=== PATIENT | male | born 1980 | race Caucasian/White ===

== ENCOUNTER 2019-02-05 11:48 | Emergency (ER) | payer MEDICAID, SELFPAY ==
[2019-02-05 11:51] VITALS: BP 169/107; PULSE 102; RESP 16; TEMP 36.6; O2SAT 97
--- NOTE | 2019-02-05 11:53 | W.ED.GENAD ---
Discharge Plan Discharge Details Chief Complaint: Anxiety Primary Care Provider: None,None ED Provider: Maci Clancy Home Meds and New Rx's Prescriptions: No Action ibuprofen 800 MG tablet 800 mg PO TID Qty: 30 RF: 0 Medical Decision Making Henry Devries is a 38-year-old man with history of chronic anxiety presenting to the emergency department to see care for his chronic and unchanged anxiety symptoms. On exam patient is very well and nontoxic appearing. Is a grossly nonfocal neuro exam, his thought process is lucid and his clear speech is clear. He is clinically sober. He does have decision-making capacity. Doubt metabolic/lyte derangement is contributing to symptoms given chronicity, however plan for labs given no prior screening. Exam/history is not consistent with acute emergent threat to self or to others, acute emergent nonpsychiatric intracranial process, psychosis, other acute emergent life-threatening process. Plan for mental health evaluation to establish outpatient follow-up, and also outpatient follow-up with PCP, plan for d/c to home after labs and outpt f/u plan with mental health. Patient placed on care management list for PCP. Mental health notified of patient for evaluation. Patient requesting that he wait in the waiting room, as he feels more anxious in the enclosed space of the exam room. He is with his . Plan for patient to wait in results waiting area for mental health evaluation, lab draw, further discussion. Patient apparently eloped from the waiting room with his . Attempt was made to contact the patient, however he could not be reached with the phone number provided. Patient was on list for care management follow-up for elopement in addition to PCP establishment. Medical Records Medical records reviewed: Yes I reviewed the patient's medical records. HPI General Mode of arrival: ambulatory. Date/Time Provider Initiated Documentation: 02/05/19 11:52. Limitations to Documentation: no limitations. Information obtained by: patient, RN notes reviewed and old records reviewed. HPI Narrative: Henry Devries is a 38-year-old man with h/o anxiety presenting to the emergency department for chronic anxiety. Patient is accompanied by his . He reports that 6 years ago his brother , and since that time he has had daily anxiety. Patient reports that his anxiety does wax and wane. He states that over the past felt a few days he has had worsening of symptoms, though not any worse than they have been multiple times in the past. and drank 2 beers yesterday and 2 beers today to help with his anxiety. He does not have a history of heavy alcohol use and he reports that he does not typically ever drink alcohol. Patient reports that he became upset that he was using alcohol to handle his anxiety symptoms and thus came to the emergency department. Patient reports that he has no primary care doctor, and has never sought care in any form for his anxiety in the past. He takes no medications. He denies any drug use. Denies any ingestions today other than alcohol as above. He denies suicidality, homicidality, or any thoughts of harming himself. He reports that his is very supportive of him, and he takes very comfort and caring for his children. He also works and enjoys his job. He states that his anxiety is very troubling for him, but it does not usually interfere with his daily activities. Patient reports that his symptoms have been essentially unchanged over the past 6 years, neither improving or worsening. He denies any physical symptoms. No recent illnesses, no recent travel. Has been eating and drinking as usual. Related Data Home Medications Medication Instructions Recorded Confirmed ibuprofen 800 mg PO TID #30 tab 02/06/13 02/05/19 Previous Rx's Medication Instructions Recorded ibuprofen 800 mg PO TID #30 tab 02/06/13 Allergies Allergy/AdvReac Type Severity Reaction Status Date / Time No Known Allergies Allergy Unverified 02/05/19 11:55 Review of Systems Review of Systems Constitutional: denies fevers Eyes: denies eye pain ENT: denies facial pain, dental pain, sore throat Cardiovascular: denies chest pain Respiratory: denies SOB, cough GI: denies abdominal pain, vomiting, diarrhea : denies flank pain MSK: denies back pain, neck pain, arthralgias, myalgias Skin: denies rash Neuro: denies headaches, numbness, weakness Psych: Denies suicidality, homicidality, hallucinations [facility] Social History Smoking/Tobacco Use Status: Current every day Tobacco Type: cigarettes Alcohol Intake: current Alcohol Intake frequency: 0-2 drinks per day Alcohol type: beer Drug use: Never Substance use type: does not use Do you feel safe at home: Yes Do you feel safe in your relationship?: Yes Exam Narrative Exam Narrative: Constitutional: well and [id number], pleasant, conversing normally HENT: head atraumatic/normocephalic/normal inspection, mucous membranes moist Eyes: conjunctiva normal, sclera normal, pupils 3mm b/l Neck: no stridor, normal ROM, trachea midline Resp: normal work of breathing Cardio: normal rate, normal rhythm Skin: warm, dry, normal color, no rash Neuro: alert, not altered, grossly non-focal, normal tone Psych: normal mood, normal affect, normal behavior. Normal speech, clear thought process. No suicidality, no hallucinations
[2019-02-05 11:57] VITALS: RESP 16
--- NOTE | 2019-02-05 12:39 | ED.GENADUL_ITS ---
Discharge Plan Discharge Details Chief Complaint: Anxiety Primary Care Provider: None,None ED Provider: Maci Clancy Home Meds and New Rx's Prescriptions: No Action ibuprofen 800 MG tablet 800 mg PO TID Qty: 30 RF: 0 Medical Decision Making Henry Devries is a 38-year-old man with history of chronic anxiety presenting to the emergency department to see care for his chronic and unchanged anxiety symptoms. On exam patient is very well and nontoxic appearing. Is a grossly nonfocal neuro exam, his thought process is lucid and his clear speech is clear. He is clinically sober. He does have decision-making capacity. Doubt m etabolic/lyte derangement is contributing to symptoms given chronicity, however plan for labs given no prior screening. Exam/history is not consistent with acute emergent threat to self or to others, acute emergent nonpsychiatric intracranial process, psychosis, other acute emergent life-threatening process. Plan for mental health evaluation to establish outpatient follow-up, and also outpatient follow-up with PCP, plan for d/c to home after labs and outpt f/u plan with mental health. Patient placed on care management list for PCP. Mental health notified of patient for evaluation. Patient requesting that he wait in the waiting room, as he feels more anxious in the enclosed space of the exam room. He is with his . Plan for patient to wait in results waiting area for mental health evaluation, lab draw, further discussion. Patient apparently eloped from the waiting room with his . Attempt was made to contact the patient, however he could not be reached with the phone number provided. Patient was on list for care management follow-up for elopement in addition to PCP establishment. Medical Records Medical records reviewed: Yes I reviewed the patient's medical records. HPI General Mode of arrival: ambulatory . Date/Time Provider Initiated Documentation: 02/05/19 11:52 . Limitations to Documentation: no limitations . Information obtained by: patient, RN notes reviewed and old records reviewed . HPI Narrative: Henry Devries is a 38-year-old man with h/o anxiety presenting to the emergency department for chronic anxiety. Patient is accompanied by his . He reports that 6 years ago his brother , and since that time he has had daily anxiety. Patient reports that his anxiety does wax and wane. He states that over the past felt a few days he has had worsening of symptoms, though not any worse than they have been multiple times in the past. and drank 2 beers yesterday and 2 beers today to help with his anxiety. He does not have a history of heavy alcohol use and he reports that he does not typically ever drink alcohol. Patient reports that he became upset that he was using alcohol to handle his anxiety symptoms and thus came to the emergency department. Patient reports that he has no primary care doctor, and has never sought care in any form for his anxiety in the past. He takes no medications. He denies any drug use. Denies any ingestions today other than alcohol as above. He denies suicidality, homicidality, or any thoughts of harming himself. He reports that his is very supportive of him, and he takes very comfort and caring for his children. He also works and enjoys his job. He states that his anxiety is very troubling for him, but it does not usually interfere with his daily activities. Patient reports that his symptoms have been essentially unchanged over the past 6 years, neither improving or worsening. He denies any physical symptoms. No recent illnesses, no recent travel. Has been eating and drinking as usual. Related Data Home Medications Medication Instructions Recorded Confirmed ibuprofen 800 mg PO TID #30 tab 02/06/13 02/05/19 Previous Rx's Medication Instructions Recorded ibuprofen 800 mg PO TID #30 tab 02/06/13 Allergies Allergy/AdvReac Type Severity Reaction Status Date / Time No Known Allergies Allergy Unverified 02/05/19 11:55 Review of Systems Review of Systems Constitutional: denies fevers Eyes: denies eye pain ENT: denies facial pain, dental pain, sore throat Cardiovascular: denies chest pain Respiratory: denies SOB, cough GI: denies abdominal pain, vomiting, diarrhea : denies flank pain MSK: denies back pain, neck pain, arthralgias, myalgias Skin: denies rash Neuro: denies headaches, numbness, weakness Psych: Denies suicidality, homicidality, hallucinations [facility] Social History Smoking/Tobacco Use Status: Current every day Tobacco Type: cigarettes Alcohol Intake: current Alcohol Intake frequency: 0-2 drinks per day Alcohol type: beer Drug use: Never Substance use type: does not use Do you feel safe at home: Yes Do you feel safe in your relationship?: Yes Exam Narrative Exam Narrative: Constitutional: well and [id number], pleasant, conversing normally HENT: head atraumatic/normocephalic/normal inspection, mucous membranes moist Eyes: conjunctiva normal, sclera normal, pupils 3mm b/l Neck: no stridor, normal ROM, trachea midline Resp: normal work of breathing Cardio: normal rate, normal rhythm Skin: warm, dry, normal color, no rash Neuro: alert, not altered, grossly non-focal, normal tone Psych: normal mood, normal affect, normal behavior. Normal speech, clear thought process. No suicidality, no hallucinations
== END 2019-02-05 12:30 ==
LOC: ER 12:37
PROVIDERS: Emergency Provider Student in an Organized Health Care Education/Training Program
DX: F41.9 Anxiety disorder, unspecified (principal)
CPT/HCPCS: 99283

== ENCOUNTER 2019-02-06 17:23 | Emergency (ER) | payer MEDICAID, SELFPAY ==
[2019-02-06 17:33] VITALS: BP 158/107; PULSE 110; RESP 16; TEMP 36.6; O2SAT 98
[2019-02-06 17:53] VITALS: RESP 20
--- NOTE | 2019-02-06 18:02 | W.ED.GENAD ---
Discharge Plan Disposition Patient Disposition: HOME Condition: Fair Discharge Details Chief Complaint: Anxiety Clinical Impression: Anxiety, Alcohol abuse Primary Care Provider: None,None ED Provider: Swetha Keenan Home Meds and New Rx's Prescriptions: Continued ibuprofen 800 MG tablet 800 mg PO TID Qty: 30 RF: 0 Discharge Instructions Instructions: Abuse of Alcohol (ED), Anxiety (ED) Additional Instructions: Cut back on alcohol intake. Please contact detox facilities as soon as possible to discuss admission. you have been placed on a list for primary care physician. They will contact you to discuss follow up appointment. If you develop thoughts of self harm or other new/worsening symptoms please seek care urgently once again. Discharge Data Discharge Date/Time-TO BE ENTERED AT DEPARTURE: 02/06/19 19:00 Medical Decision Making This is a 38-year-old male presents today with primary concern of anxiety and alcohol abuse. He reports over the past several weeks is been drinking daily to self medicate my anxiety. He denies any thoughts of self-harm, hallucinations, thoughts of harming others. He reports that he has had anxiety for several years, particularly since his brother's . Reports that this has been increasing but denies any acute change in his social situation. He seems very attached to his . His is present with him and is nothing but supportive. He feels safe at home. Patient was seen by Matt with [facility] services and was able to give him all of the contact information for local rehabilitation services. Patient reports that this was what he was seeking. He is aware that at this time, given his have an alcohol use, we are unable to prescribe anxiety medications for him. He reports that he will contact them today to try and get in as soon as possible for further facilitation. We discussed new/worsening symptoms when to seek care urgently once again. He will try to begin weaning himself off of alcohol. All his questions and concerns were addressed and he is in agreement this plan. He has upcoming appointment with mental health and will keep this appointment. HPI General Mode of arrival: ambulatory. Date/Time Provider Initiated Documentation: 02/06/19 17:28. Limitations to Documentation: no limitations. Information obtained by: patient, family (accompanied by ) and RN notes reviewed. HPI Narrative: Patient is a 38-year-old male presenting today with chief complaint of anxiety. He reports that he has been having increased anxiety, was seen here recently for this, and has been self-medicating with alcohol. Seems very concerned about this particularly with his interpersonal relationship. Patient is has children and states that he is concerned that this may begin to affect his relationship with his . Prior to coming here, the patient drank 6 beers. He is wanting to get into a detox facility but was unclear as to how to do this. Patient is seen by [facility] was actually seen there this morning at which time he did discuss his anxiety. He has not yet contacted any detox facilities, is here requesting more information. He denies any thoughts of self-harm, hallucinations or thoughts of harming others. Related Data Home Medications Medication Instructions Recorded Confirmed ibuprofen 800 mg PO TID #30 tab 02/06/13 02/05/19 Previous Rx's Medication Instructions Recorded ibuprofen 800 mg PO TID #30 tab 02/06/13 Allergies Allergy/AdvReac Type Severity Reaction Status Date / Time No Known Allergies Allergy Unverified 02/06/19 17:38 General Stated Complaint: Anxiety YUVAL: 3 Review of Systems Constitutional Reports as per HPI, Denies chills, Denies fatigue, Denies fever(s), Denies headache(s) and Denies weakness Eyes Denies change in vision ENT Denies headache(s) Cardiovascular Reports as per HPI, Denies chest pain, Denies lightheadedness, Denies dyspnea and Denies dyspnea on exertion Respiratory Reports as per HPI, Denies cough, Denies dyspnea and Denies dyspnea on exertion Gastrointestinal Reports as per HPI, Denies abdominal pain, Denies change in bowel habits, Denies nausea and Denies vomiting Genitourinary Denies system reviewed and no additional complaints, except as docu (denies any change in urinary habits) Musculoskeletal Denies abnormal gait Integumentary/Breasts Reports as per HPI and Denies rash Neurologic Denies abnormal movements, Denies abnormal speech, Denies abnormal gait, Reports behavioral changes, Denies headache(s), Denies paresthesias and Denies weakness Psychiatric Reports as per HPI, Reports abnormal sleep pattern, Reports anxiety, Reports behavioral changes, Reports depression, Denies auditory hallucinations, Reports mood swings, Reports panic attacks, Denies visual hallucinations, Denies hallucinations, Denies tactile hallucinations, Denies homicidal ideation and Denies suicidal ideation Endocrine Denies fatigue [facility] Social History Smoking/Tobacco Use Status: Current every day Tobacco Type: cigarettes Alcohol Intake: current Alcohol Intake frequency: 0-2 drinks per day Alcohol type: beer Drug use: Never Substance use type: does not use Do you feel safe at home: Yes Do you feel safe in your relationship?: Yes Exam Const General: cooperative, healthy appearing, comfortable, well developed, well groomed, anxious and disheveled Nutritional Appearance: average body habitus and well nourished Orientation: alert, awake and oriented x3 Eyes General: appearance normal, both eyes and all related structures Resp Effort & Inspection: normal respiratory effort, able to speak in complete sentences and no respiratory distress Auscultation: clear to auscultation bilaterally, no rales, no rhonchi and no wheezes Cardio Rate: regular rate Rhythm: regular rhythm Heart Sounds: S1 normal and S2 normal Skin General skin exam: no rashes or lesions noted Trauma: no lacerations or abrasions Neuro General: alert and awake Cognition: normal cognition Speech: speech normal Gait: normal gait Psych Appearance: grossly normal Mental Status: mental status grossly normal Speech and Movement: agitated Mood: anxious mood and labile mood Affect: labile affect, sad and anxious affect Attitude: cooperative Thought Process: normal Course Vital Signs Temperature 36.6 C 02/06/19 17:33 Pulse 110 H 02/06/19 17:33 Respiratory Rate 16 02/06/19 17:33 Blood Pressure 158/107 H 02/06/19 17:33 Pulse Oximetry 98 02/06/19 17:33 Temperature 36.6 C 02/06/19 17:33 Temperature Source Skin 02/06/19 17:33 Pulse 110 H 02/06/19 17:33 Respiratory Rate 20 02/06/19 17:53 Respiratory Effort Short of Breath 02/06/19 17:53 Respiratory Depth Normal 02/06/19 17:53 Respiratory Pattern Normal 02/06/19 17:53 Blood Pressure 158/107 H 02/06/19 17:33 Blood Pressure Position Sitting 02/06/19 17:33 Pulse Oximetry 98 02/06/19 17:33 Oxygen Delivery Method Room Air 02/06/19 17:33 Oxygen Flow Rate 0 02/06/19 17:33
[2019-02-06 18:57] VITALS: BP 116/64; PULSE 110; RESP 20; TEMP 36.6; O2SAT 98
--- NOTE | 2019-02-10 10:35 | ED.GENADUL_ITS ---
Discharge Plan Disposition Patient Disposition: HOME Condition: Fair Discharge Details Chief Complaint: Anxiety Clinical Impression: Anxiety, Alcohol abuse Primary Care Provider: None,None ED Provider: Swetha Keenan Home Meds and New Rx's Prescriptions: Continued ibuprofen 800 MG tablet 800 mg PO TID Qty: 30 RF: 0 Discharge Instructions Instructions: Abuse of Alcohol (ED), Anxiety (ED) Additional Instructions: Cut back on alcohol intake. Please contact detox facilities as soon as possible to discuss admission. you have been placed on a list for primary care physician. They will contact you to discuss follow up appointment. If you develop thoughts of self harm or other new/worsening symptoms please seek care urgently once again. Discharge Data Discharge Date/Time-TO BE ENTERED AT DEPARTURE: 02/06/19 19:00 Medical Decision Making This is a 38-year-old male presents today with primary concern of anxiety and alcohol abuse. He reports over the past several weeks is been drinking daily to self medicate my anxiety. He denies any thoughts of self-harm, hallucinations, thoughts of harming others. He reports that he has had anxiety for several years, particularly since his brother's . Reports that this has been increasing but denies any acute change in his social situation. He seems very attached to his . His is present with him and is nothing but supportive. He feels safe at home. Patient was seen by Matt with [facility] services and was able to give him all of the contact information for local rehabilitation services. Patient reports that this was what he was seeking. He is aware that at this time, given his have an alcohol use, we are unable to prescribe anxiety medications for him. He reports that he will contact them today to try and get in as soon as possible for further facilitation. We discussed new/worsening symptoms when to seek care urgently once again. He will try to begin weaning himself off of alcohol. All his questions and concerns were addressed and he is in agreement this plan. He has upcoming appointment with mental health and will keep this appointment. HPI General Mode of arrival: ambulatory . Date/Time Provider Initiated Documentation: 02/06/19 17:28 . Limitations to Documentation: no limitations . Information obtained by: patient, family (accompanied by ) and RN notes reviewed . HPI Narrative: Patient is a 38-year-old male presenting today with chief complaint of anxiety. He reports that he has been having increased anxiety, was seen here recently for this, and has been self-medicating with alcohol. Seems very concerned about this particularly with his interpersonal relationship. Patient is has children and states that he is concerned that this may begin to affect his relationship with his . Prior to coming here, the patient drank 6 beers. He is wanting to get into a detox facility but was unclear as to how to do this. [facility] this morning at which time he did discuss his anxiety. He has not yet contacted any detox facilities, is here requesting more information. He denies any thoughts of self-harm, hallucinations or thoughts of harming others. Related Data Home Medications Medication Instructions Recorded Confirmed ibuprofen 800 mg PO TID #30 tab 02/06/13 02/05/19 Previous Rx's Medication Instructions Recorded ibuprofen 800 mg PO TID #30 tab 02/06/13 Allergies Allergy/AdvReac Type Severity Reaction Status Date / Time No Known Allergies Allergy Unverified 02/06/19 17:38 General Stated Complaint: Anxiety YUVAL: 3 Review of Systems Constitutional Reports as per HPI, Denies chills, Denies fatigue, Denies fever(s), Denies headache(s) and Denies weakness Eyes Denies change in vision ENT Denies headache(s) Cardiovascular Reports as per HPI, Denies chest pain, Denies lightheadedness, Denies dyspnea and Denies dyspnea on exertion Respiratory Reports as per HPI, Denies cough, Denies dyspnea and Denies dyspnea on exertion Gastrointestinal Reports as per HPI, Denies abdominal pain, Denies change in bowel habits, Denies nausea and Denies vomiting Genitourinary Denies system reviewed and no additional complaints, except as docu (denies any change in urinary habits) Musculoskeletal Denies abnormal gait Integumentary/Breasts Reports as per HPI and Denies rash Neurologic Denies abnormal movements, Denies abnormal speech, Denies abnormal gait, Reports behavioral changes, Denies headache(s), Denies paresthesias and Denies weakness Psychiatric Reports as per HPI, Reports abnormal sleep pattern, Reports anxiety, Reports behavioral changes, Reports depression, Denies auditory hallucinations, Reports mood swings, Reports panic attacks, Denies visual hallucinations, Denies hallucinations, Denies tactile hallucinations, Denies homicidal ideation and Denies suicidal ideation Endocrine Denies fatigue [facility] Social History Smoking/Tobacco Use Status: Current every day Tobacco Type: cigarettes Alcohol Intake: current Alcohol Intake frequency: 0-2 drinks per day Alcohol type: beer Drug use: Never Substance use type: does not use Do you feel safe at home: Yes Do you feel safe in your relationship?: Yes Exam Const General: cooperative, healthy appearing, comfortable, well developed, well groomed, anxious and disheveled Nutritional Appearance: average body habitus and well nourished Orientation: alert, awake and oriented x3 Eyes General: appearance normal, both eyes and all related structures Resp Effort & Inspection: normal respiratory effort, able to speak in complete sentences and no respiratory distress Auscultation: clear to auscultation bilaterally, no rales, no rhonchi and no wheezes Cardio Rate: regular rate Rhythm: regular rhythm Heart Sounds: S1 normal and S2 normal Skin General skin exam: no rashes or lesions noted Trauma: no lacerations or abrasions Neuro General: alert and awake Cognition: normal cognition Speech: speech normal Gait: normal gait Psych Appearance: grossly normal Mental Status: mental status grossly normal Speech and Movement: agitated Mood: anxious mood and labile mood Affect: labile affect, sad and anxious affect Attitude: cooperative Thought Process: normal Course Vital Signs Temperature 36.6 C 02/06/19 17:33 Pulse 110 H 02/06/19 17:33 Respiratory Rate 16 02/06/19 17:33 Blood Pressure 158/107 H 02/06/19 17:33 Pulse Oximetry 98 02/06/19 17:33 Temperature 36.6 C 02/06/19 17:33 Temperature Source Skin 02/06/19 17:33 Pulse 110 H 02/06/19 17:33 Respiratory Rate 20 02/06/19 17:53 Respiratory Effort Short of Breath 02/06/19 17:53 Respiratory Depth Normal 02/06/19 17:53 Respiratory Pattern Normal 02/06/19 17:53 Blood Pressure 158/107 H 02/06/19 17:33 Blood Pressure Position Sitting 02/06/19 17:33 Pulse Oximetry 98 02/06/19 17:33 Oxygen Delivery Method Room Air 02/06/19 17:33 Oxygen Flow Rate 0 02/06/19 17:33
== END 2019-02-06 19:00 | disposition home or self-care (01) ==
PROVIDERS: Emergency Provider Physician Assistant
DX: F41.9 Anxiety disorder, unspecified (principal); F10.10 Alcohol abuse, uncomplicated
CPT/HCPCS: 99283

== ENCOUNTER 2019-08-06 08:09 | Emergency (ER) | payer MEDICAID, SELFPAY ==
[2019-08-06 08:14] VITALS: BP 136/87; PULSE 120; RESP 18; TEMP 36.3; O2SAT 99
--- NOTE | 2019-08-06 08:21 | ED.GENADUL_ITS ---
Discharge Plan Disposition Patient Disposition: HOME Condition: Stable Discharge Details Chief Complaint: RespSymp Clinical Impression: Acute upper respiratory infection Primary Care Provider: None,None ED Provider: Dillon Reagan Home Meds and New Rx's Prescriptions: New doxycycline hyclate 100 mg tablet 100 mg PO BID Qty: 14 RF: 0 prednisone 20 mg tablet 60 mg PO DAILY 5 Days Qty: 15 RF: 0 Cortisporin-TC 3.3-3-10-0.5 mg/mL drops,suspension 4 drp OT TID 5 Days Qty: 10 RF: 0 Continued ibuprofen 800 MG tablet 800 mg PO TID Qty: 30 RF: 0 Discharge Instructions Instructions: Upper Respiratory Infection (ED) Additional Instructions: if not better within a week follow up with your primary care provider if you feel more ill, have worsening shortness of breath or severe pain return to the emergency department you can take 1000mg tylenol and 600mg ibuprofen every 6 hours for pain as needed Medical Decision Making 39 yo male who denies chronic medical problems, is a smoker, comes in with chief complaint of cough for several days. no fevers, denies recent travel or chest pain. He does have wheezing bilaterally in the lower lobes with some rhonchi in the right lower. He appears well systemically with HR of 100 on my exam. Doubt sepsis at this time. Given his findings will tx with steroids and neb and reassess. Will also cover for bronchitis vs early cap with doxy. He has no chest pain and his symptoms are more infectious with runny nose as well so doubt entities such as acs, pe, dissection at this time. pt remains stable, has intermittent dry cough and lung sounds are significantly improved. Will d/c with an inhaler and on steroids and doxy. He has noted some ear pain and does have some mild inflammation of the right ear canal, both tm's and external mastoid exams are normal. Will d/c on ear drops. Advised f/u with pcp if not improving and return precautions given Differential Diagnosis Differential Diagnosis: copd, asthma, bronchitis, pna HPI General Mode of arrival: ambulatory . Date/Time Provider Initiated Documentation: 08/06/19 08:11 . Limitations to Documentation: no limitations . Information obtained by: patient . History of Present Illness 39 year old M presents to the emergency department with the chief complaint of cough, described as moderate, and it has been constant. No relieving factors improve symptom(s), No exacerbating factors reported . Patient did receive the following treatments prior to arrival, none Related Data Home Medications Medication Instructions Recorded Confirmed ibuprofen 800 mg PO TID #30 tab 02/06/13 08/06/19 doxycycline hyclate 100 mg PO BID #14 tab 08/06/19 [id number]-[id number]-thonzonium 4 drp OT TID 5 Days #10 ml 08/06/19 [Cortisporin-TC] prednisone 60 mg PO DAILY 5 Days #15 tab 08/06/19 Previous Rx's Medication Instructions Recorded ibuprofen 800 mg PO TID #30 tab 02/06/13 doxycycline hyclate 100 mg PO BID #14 tab 08/06/19 [id number]-[id number]-EE-thonzonium 4 drp OT TID 5 Days #10 ml 08/06/19 [Cortisporin-TC] prednisone 60 mg PO DAILY 5 Days #15 tab 08/06/19 Allergies Allergy/AdvReac Type Severity Reaction Status Date / Time No Known Allergies Allergy Unverified 08/06/19 08:18 General Stated Complaint: RespSymp YUVAL: 4 Review of Systems Review of Systems ROS Unobtainable: All systems reviewed & are unremarkable except as noted in HPI and below Constitutional Constitutional: Denies chills and Denies fever(s) Cardiovascular Cardiovascular: Denies chest pain Gastrointestinal Gastrointestinal: Denies abdominal pain, Denies nausea and Denies vomiting PFSH Social History Smoking/Tobacco Use Status: Current every day Tobacco Type: cigarettes Alcohol Intake: current Alcohol Intake frequency: 0-2 drinks per day Alcohol type: beer Drug use: Never Substance use type: does not use Do you feel safe at home: Yes Do you feel safe in your relationship?: Yes Exam Const General: no acute distress Orientation: alert HENMT Head: normal to inspection Ears: external ears normal General nose exam: external nose normal Mouth: moist mucous membranes Eyes General: appearance normal, both eyes and all related structures Neck Neck: normal visual inspection Resp Effort & Inspection: normal respiratory effort and able to speak in complete sentences Cardio Rate: regular rate Skin General skin exam: no rashes or lesions noted Neuro General: alert and oriented x3 Extrem General: normal to inspection Psych Mental Status: mental status grossly normal Course Vital Signs Vital signs: Vital Signs Temperature 36.3 C L 08/06/19 08:14 Pulse 120 H 08/06/19 08:14 Respiratory Rate 18 08/06/19 08:14 Blood Pressure 136/87 08/06/19 08:14 Pulse Oximetry 99 08/06/19 08:14 Temperature 36.3 C L 08/06/19 08:14 Temperature Source Temporal Artery Scan 08/06/19 08:14 Pulse 120 H 08/06/19 08:14 Respiratory Rate 18 08/06/19 08:14 Respiratory Effort Non-Labored 08/06/19 08:17 Blood Pressure 136/87 08/06/19 08:14 Pulse Oximetry 99 08/06/19 08:14 Oxygen Delivery Method Room Air 08/06/19 08:14 Oxygen Flow Rate 0 08/06/19 08:14 Pain Level 0 08/06/19 08:14
[2019-08-06] MEDS: Doxycycline Hyclate 100 MG CAP PO (08:24)
[2019-08-06] MEDS: Albuterol/Ipratropium 3 ML UPD VIAL UPD (08:24)
[2019-08-06] MEDS: predniSONE 20 MG TAB 60 MG PO (08:24)
[2019-08-06] MEDS: Albuterol HFA 8 GM 60 PUFF INH IH (08:52)
[2019-08-06 08:53] VITALS: BP 136/87; PULSE 120; RESP 18; TEMP 36.3; O2SAT 99
[2019-08-06] MEDS: Inhaler, Assist Device 1 EACH MC (08:53)
== END 2019-08-06 08:55 | disposition home or self-care (01) ==
PROVIDERS: Emergency Provider Emergency Medicine
DX: J06.9 Acute upper respiratory infection, unspecified (principal); F17.210 Nicotine dependence, cigarettes, uncomplicated
CPT/HCPCS: 94640; 99283; J7512; J7620

== ENCOUNTER 2023-05-24 11:20 | Emergency (ER) | payer MEDICAID, SELFPAY ==
[2023-05-24 11:29] VITALS: BP 111/82; PULSE 133; RESP 18; TEMP 36.7; O2SAT 97
--- NOTE | 2023-05-24 11:36 | ED.GENADUL_ITS ---
Discharge Plan Disposition Patient Disposition: Home Condition: Stable Discharge Details Clinical Impression: Lumbago without sciatica Primary Care Provider: None,None ED Provider: Smita Reynolds Home Meds and New Rx's Prescriptions: New diazepam [Valium] 2 mg tablet 2 mg PO BID PRN (Reason: muscle spasm) Qty: 7 0RF Rx Instructions: Take one tablet by mouth twice daily as needed for muscle spasm. No Action ibuprofen 800 MG tablet 800 mg PO TID Qty: 30 0RF Discharge Instructions Instructions: Low Back Strain (ED) Additional Instructions: X-ray shows some degenerative changes of your spine. No significant abnormality. I do suspect that you have strained your back. Please take the Valium prescription as instructed. Do not operate heavy machinery or drive while on this medication it will make you sleepy. Alternate ice and heat. Please take Tylenol or Ibuprofen with food every 4-6 hours as needed for pain and swelling. Follow up with primary care provider in 3-5 days. Return to ED sooner if any worsening numbness tingling, loss of bowel or bladder control, loss of muscle strength in your extremities or concerns. Increase oral fluids. You may also try [id number] topical ointment such as Biofreeze or similar. You been placed on a care management list to establish primary care provider they should be calling you to help you get an appointment. Discharge Data Discharge Date/Time-TO BE ENTERED AT DEPARTURE: 05/24/23 14:57 Medical Decision Making 43-year-old male presents to the ER with lower back pain which began 3 days ago after lifting a coffee table and a bed. Pain is worse with forward bending and certain movements of his legs he denies any radiation, denies any saddle anesthesia no loss of bowel or bladder control no numbness in his groin. He does report a sensation of pressure in his testicles with forward bending onto all fours. He denies any testicular swelling. No crepitus, step-off with palpation. He is tachycardic upon arrival. Has not taken any medications for pain this morning. Lumbar x-rays ordered, urinalysis IM Norflex and 60 mg Toradol and lidocaine patch. Differential diagnosis includes but not limited to musculoskeletal strain, muscle spasm, bulging disc, slipped disc, cauda equina however patient has no saddle anesthesia or radiation of pain. X-ray within normal limits see result below. Mild degenerative changes. I do suspect musculoskeletal strain and with muscle spasm. This is also accompanied by anxiety. I will give patient a Valium prescription and home care including alternating ice and heat and follow-up care and strict return instructions. Urinalysis shows trace ketones negative leukocytes negative nitrites 2.0 uro bilinogen. Patient ambulatory upon discharge and throughout stay. Instructed to follow-up with PCP. this text was generated using [employer] dictation system, please disregard any oddities of phrase or misspellings. Imaging Data Radiologic Study: Imaging: X-Ray Radiologist's impression: XR LUMBAR SPINE COMPLETE EXAM:? XR LUMBAR SPINE COMPLETE CLINICAL HISTORY: ? Lower back Pain.? TECHNIQUE:? 2D digital imaging was performed of the lumbar spine.? Five images were obtained.? AP, lateral, right oblique, left oblique and L5-S1 spot views were obtained. COMPARISON:? No exams were available for comparison FINDINGS: There are mild degenerative changes seen in the lumbar spine.? No acute fracture or subluxation is seen.? There is no spondylolysis or spondylolisthesis.? The bones are normally mineralized. IMPRESSION: Mild degenerative changes in the lumbar spine.? Lab Data Lab results reviewed: Yes I reviewed the patient's lab results. Labs: Laboratory Tests Range/Units 05/24/23 11:51 Urine Color (Yellow) Yellow Urine Clarity (Clear) Clear Urine pH (5-8) 8.5 H Ur Specific [place] (1.005-1.025) 1.020 Urine Protein (Negative) mg/dL Negative Urine Ketones (Negative) mg/dL Trace H Urine Blood (Negative) Negative Urine Nitrite (Negative) Negative Urine Bilirubin (Negative) Negative Urine Urobilinogen (Up to 0.2) mg/dL 2.0 H Ur Leukocyte Esterase (Negative) Negative Urine Glucose (Negative) mg/dL Negative HPI General Mode of arrival: ambulatory . Date/Time Provider Initiated Documentation: 05/24/23 11:22 . Limitations to Documentation: no limitations . Information obtained by: patient, RN notes reviewed and old records reviewed . HPI Narrative: 43-year-old male presents to the ER with lower back pain which began 3 days ago after lifting a coffee table and a bed. Pain is worse with forward bending and certain movements of his legs he denies any radiation, denies any saddle anesthesia no loss of bowel or bladder control no numbness in his groin. He does report a sensation of pressure in his testicles with forward bending onto all fours. He denies any testicular swelling. No crepitus, step-off with palpation. He is tachycardic upon arrival. Has not taken any medications for pain this morning. Related Data Home Medications Medication Instructions Recorded Confirmed ibuprofen 800 mg tablet 800 mg PO TID #30 tabs 02/06/13 05/24/23 diazepam 2 mg tablet (Valium) 2 mg PO BID PRN muscle spasm #7 05/24/23 tabs Previous Rx's Medication Instructions Recorded ibuprofen 800 mg tablet 800 mg PO TID #30 tabs 02/06/13 diazepam 2 mg tablet (Valium) 2 mg PO BID PRN muscle spasm #7 05/24/23 tabs Allergies Allergy/AdvReac Type Severity Reaction Status Date / Time No Known Allergies Allergy Unverified 05/24/23 11:37 General Stated Complaint: Nk/Back Pain YUVAL: 4 Review of Systems All systems reviewed & are unremarkable except as noted in HPI and below ENT Ears, Nose, Mouth, and Throat: Denies neck pain Musculoskeletal Musculoskeletal: Reports back pain, Denies loss of height, Denies neck pain, Denies numbness, Denies radiating pain into limb and Reports stiffness Neurologic Neurologic: Reports as per HPI, Denies localized weakness and Denies numbness PFSH All Active Problems (Updated 05/24/23 @ 14:44 by Smita Reynolds NP) Lumbago without sciatica (Acute) Social History Smoking/Tobacco Use Status: Former Tobacco Use Quit Date: 11/17/22 Smoking risk assessment performed?: Yes Alcohol Intake: former Drug use: Never Substance use type: does not use Housing: apartment Do you feel safe at home: Yes Do you feel safe in your relationship?: Yes Exam Resp Effort & Inspection: normal respiratory effort and able to speak in complete sentences Auscultation: clear to auscultation bilaterally Cardio Rate: tachycardic Heart Sounds: S1 normal and S2 normal Back/Spine/Pelvis Back: no CVA tenderness Cervical Spine: normal cervical lordosis and cervical ROM normal Thoracic/Lumbar Spine: bend over test abnormal, thoraco-lumbar ROM limited, thoraco-lumbar spasm and No lumbar spinal tenderness Back/spine/pelvis image: 1. Subjective Pain Neuro General: patient alert, patient awake, patient oriented x3, moves all extremities, normal light touch, pain and propioception and no focal motor deficits Cognition: normal cognition Speech: speech normal Gait: normal gait Motor: muscle tone normal throughout and strength 5/5 throughout Course Vital Signs Vital signs: Vital Signs Temperature 36.7 C 05/24/23 11:29 Pulse 133 H 05/24/23 11:29 Respiratory Rate 18 05/24/23 11:29 Blood Pressure 111/82 05/24/23 11:29 Pulse Oximetry 97 05/24/23 11:29 Temperature 36.7 C 05/24/23 11:29 Temperature Source Oral 05/24/23 11:29 Pulse 133 H 05/24/23 11:29 Respiratory Rate 18 05/24/23 11:29 Respiratory Effort Normal, Non-Labored 05/24/23 11:34 Blood Pressure 111/82 05/24/23 11:29 Blood Pressure Position Standing 05/24/23 11:29 Pulse Oximetry 97 05/24/23 11:29 Oxygen Delivery Method Room Air 05/24/23 11:29 Oxygen Flow Rate 0 05/24/23 11:29 Pain Level 2 05/24/23 11:29
[2023-05-24 11:58] LABS: Bilirubin Negative (Negative); Blood Negative (Negative); Clarity Clear (Clear); Glucose Negative (Negative); Ketones Trace mg/dL (Negative); Leukocyte Esterase Negative (Negative); Nitrite Negative (Negative); pH 8.5 (5-8)
[2023-05-24] MEDS: Orphenadrine 60 MG/2 ML VIAL IM (12:02)
[2023-05-24] MEDS: Ketorolac 60 MG/2 ML VIAL IM (12:02)
[2023-05-24] MEDS: Lidocaine 5% Patch 1 PATCH TP (12:03)
--- NOTE | 2023-05-24 12:30 | DI.RAD_ITS ---
Exam(s) XR LUMBAR SPINE COMPLETE EXAM: XR LUMBAR SPINE COMPLETE CLINICAL HISTORY: Lower back Pain. TECHNIQUE: 2D digital imaging was performed of the lumbar spine. Five images were obtained. AP, la teral, right oblique, left oblique and L5-S1 spot views were obtained. COMPARISON: No exams were available for comparison FINDINGS: There are mild degenerative changes seen in the lumbar spine. No acute fracture or subluxation is se en. There is no spondylolysis or spondylolisthesis. The bones are normally mineralized. IMPRESSION: Mild degenerative changes in the lumbar spine. DATA REPOSITORY: RADIATION DOSE DELIVERED:
[2023-05-24] MEDS: diazePAM 5 MG TAB PO (13:41)
[2023-05-24 14:19] VITALS: BP 110/73; PULSE 75; TEMP 36.7; O2SAT 96
--- NOTE | 2023-05-24 14:45 | NUR.NOTE ---
Nursing Note: pcp followup refferall
== END 2023-05-24 14:57 | disposition home or self-care (01) ==
PROVIDERS: Emergency Provider Registered Nurse Emergency
DX: M47.816 Spondylosis without myelopathy or radiculopathy, lumbar region (principal); Z87.891 Personal history of nicotine dependence
CPT/HCPCS: 96372; 99283; J2360; 72110; 81003; J1885

== ENCOUNTER 2025-03-31 12:30 | Emergency (ER) | payer MEDICAID, SELFPAY ==
[2025-03-31] VITALS (12 sets, daily range): BP systolic 118–152; BP diastolic 73–97; PULSE 59–84; RESP 12–20; TEMP 36.4; O2SAT 97–99
--- NOTE | 2025-03-31 12:30 | RT.EKG_ITS ---
APPROVED REPORT Exam: Resting ECG Reason for Exam: Questioning Stroke Patient Location: E HR:79 bpm ECG Measurements Heart Rate 79 AXIS CA 154 P 43 QRSd 93 QRS 35 QT 368 T 13 QTc 423 Conclusion Sinus rhythm...normal P axis, V-rate 60- 99 No Occlusion [facility]
--- NOTE | 2025-03-31 12:33 | W.ED.GENAD ---
Discharge Plan Disposition Patient Disposition: Home Discharge Details Clinical Impression: Tingling of left upper extremity Primary Care Provider: Moise Givens ED Provider: Porter Bautista Home Meds and New Rx's Prescriptions: No Action No Known Home Meds Discharge Instructions Additional Instructions: You were seen in the emergency department for your arm tingling. Your EKG showed no sign of heart attack. Your blood work shows that you have normal kidney function and are not anemic. Your blood work is also reassuring against diabetes. Please return to the emergency department if you develop vomiting chest pain weakness or difficulty speaking. Your primary care is Dr. Kraus at [facility]. Please call to arrange for follow-up next week. Discharge Data Discharge Date/Time-TO BE ENTERED AT DEPARTURE: 03/31/25 14:46 HPI General Date/Time Provider Initiated Documentation: 03/31/25 12:32. HPI Narrative: MDM This is an overall very well-appearing normothermic and not tachycardic 44-year-old male with transient arm tingling and elevated BMI and family history positive for premature coronary artery disease for which patient will undergo troponin testing. No chest discomfort to suggest aortic dissection. No pain out of proportion to suggest suspect active soft tissue infection. No cough to suggest pneumonia. Not a dialysis patient so my suspicion is low for tamponade. Equal breath sounds and no trauma so doubt pneumothorax. No black nor bloody stoos to suggest GIB. I considered CVA given left-sided transient arm tingling. Patient is neurologically intact with no focal deficits. I do not feel that he would be a candidate for lytics. No tonic-clonic activity to suggest seizure so no indication for EEG. No fevers no nuchal rigidity so doubt meningitis. Patient lacks risk factors for TIA. As result given that he transient symptoms I do not feel that he requires an angiogram of his head nor neck. Denies recent chiropractic manipulation of neck pain so I am not suspicious for cervical arterial dissection. I considered intracranial hemorrhage however patient is neurologically intact so I do not feel he requires noncontrast CT of his head. We will obtain basic labs and and 2 sets of troponins and reassess. I considered posterior circulation CVA however patient had no nystagmus discharge CVA do not feel he requires an MRI. HEART SCORE Chest pain Diagnostic Protocol: [-History/Physical/Gestalt: Slightly Suspicious (0)] [-EKG: Normal and/or unchanged from prior EKG (0)] [-AGE: less than 45 (0)] [- RISK FACTORS: 1 - 2 risk factors (+1)] [-TROPONIN: <= normal limit (0)] - TOTAL SCORE: 1 - Risk Factors: DM, current or recent smoker, HTN, HLD, family hx of CAD, obesity - INTERPRETATION: With a total score of 3 or less, risk of major cardiac event within six weeks 1.7%, likely lower with two negative troponins. 2:30 PM Checks x-ray read by radiology with mildly increased markings in the inferior lingular segment of the left lung. Patient is not coughing, hypoxic nor tachycardic so I am not suspicious for pneumonia. Patient reported that he had had URI symptoms several weeks ago. It is certainly possible that these x-ray findings represent a scar from prior infection, either recently or remotely. We discussed that if he develops shortness of breath or chest pain that he should return to the emergency department. I asked health mmd unit teacher Lynda to have the patient established with primary care provider. Patient and I discussed that if he develops any weakness in his hand any recurrent tingling in his left arm or if he passed out that he should return to the emergency department. Otherwise we will discharge an empiric trial of expectant outpatient management. [Diagnostic interpretations performed by me: Per my independent interpretation chest x-ray shows: No acute cardiopulmonary process Per my independent interpretation EKG shows: Narrow complex normal sinus rhythm at a rate of 79. Normal axis. Intervals within normal limits. T wave version in lead III. No acute injury pattern. HPI The patient presents to the emergency room for evaluation of left arm tingling and numbness. While at home, he experienced an episode of left arm tingling and numbness, a symptom he has not previously encountered. Concurrently, he reported an unusual sensation in the posterior and superior aspects of his head. He also experienced mild dizziness during the onset of these symptoms, which intensified upon standing to prepare for his visit to the emergency room. His symptoms have since improved, with no current numbness or immobility in the affected arm. He reports no febrile episodes, emesis, thoracic or abdominal discomfort. He continues to experience mild dizziness. He has a history of panic attacks over the past few years and is uncertain if the current episode was exacerbated by a panic attack. Patient's brother had an FL in his 30s. Exam General: Well-appearing in no acute distress speaking in complete sentences. Head: Normocephalic, atraumatic. Eye:[Pupils equal, round reactive to light.] Extraocular eye movements intact. No conjunctival injection. No scleral icterus. Ear, nose, mouth, throat: Grossly normal inspection. Normal voice, handling secretions normally. Neck: Trachea midline. Cardiovascular: Well-perfused distal extremities. Respiratory: Nonlabored respiration. Gastrointestinal: Nondistended abdomen. Musculoskeletal: No edema. Moving all 4 extremities spontaneously. Skin: Normal for age and race, grossly normal temperature and turgor. No acute rash. Neurologic: Alert and appropriate, no apparent acute deficits. Cranial nerves II through XII intact grossly. No dysmetria. No dysdiadochokinesia. No pronator drift. 5 out of 5 bilateral upper and lower extremity strength. GCS 15. Psychiatric: Mood and manner are appropriate. Grooming and personal hygiene are appropriate. Related Data Home Medications ?Medication ?Instructions ?Recorded ?Confirmed Unknown [No Known Home Meds] 03/31/25 03/31/25 Allergies Allergy/AdvReac Type Severity Reaction Status Date / Time No Known Allergies Allergy Unverified 03/31/25 12:37 General YUVAL: 4 PFSH All Active Problems (Updated 03/31/25 @ 14:38 by Porter Bautista MD) Tingling of left upper extremity (Acute) Plantar fasciitis, bilateral (Acute) Family history of early CAD (Acute) Generalized anxiety disorder (Acute) Social History Smoking/Tobacco Use Status: Former Tobacco Use Quit Date: 11/17/22 Smoking risk assessment performed?: Yes Alcohol Intake: former Drug use: Never Substance use type: does not use Housing: apartment Do you feel safe at home: Yes Do you feel safe in your relationship?: Yes
--- NOTE | 2025-03-31 12:45 | DI.RAD_ITS ---
Exam(s) XR CHEST 2V PA LATERAL EXAM: XR CHEST 2V PA LATERAL CLINICAL HISTORY: Chest pain. TECHNIQUE: 2D digital imaging was performed. COMPARISON: No exams were available for comparison FINDINGS: 2 views: Heart size is upper normal. The mediastinum is not widened. Right lung is clear. There mild increased markings in the left lung base lateral to the heart border. No pleural effusions. No pulmonary edema. No pneumothorax. IMPRESSION: Mild increased markings in the inferior lingular segment of the left lung. No other pulmonary findings and no pleural effusions. DATA REPOSITORY: RADIATION DOSE DELIVERED:
[2025-03-31 13:05] LABS: Abs Immature Grans 0.02 10^3/uL (0.0-0.06); Absolute Basophil Count 0.04 10^3/uL (0.0-0.2); Absolute Eosinophil Count 0.09 10^3/uL (0.0-0.7); Absolute Lymphocyte Count 1.73 10^3/uL (1.2-3.4); Absolute Monocyte Count 0.53 10^3/uL (0.1-0.8); Absolute Neutrophil Count 4.72 10^3/uL (1.2-6.7); Basophils % 0.6 %; Eosinophils % 1.3 %; HCT 47.4 % (40.0-50.0); HGB 15.7 g/dL (13.5-17.5); Immature Grans % 0.3 %; Lymphocytes % 24.3 %; MCH 29.3 pg (27.0-33.0); MCHC 33.1 % (32.0-36.0); MCV 88 fL (80-95); MPV 11.3 fL (8.0-11.0); Monocytes % 7.4 %; Neutrophils % 66.1 %; Platelet Count 219 10^3/uL (130-400); RBC 5.36 10^6/uL (4.36-5.78); RDW 13.5 % (11.8-14.1); RDW-SD 43.8 fL; WBC 7.13 10^3/uL (4.4-10.8)
[2025-03-31 13:23] LABS: Anion Gap 7.6 mmol/L (3-11); BUN 18 mg/dL (7-18); CO2 29.4 mmol/L (21.0-32.0); CREATININE 0.9 mg/dL (0.70-1.30); Calcium 8.8 mg/dL (8.5-10.1); Chloride 102 mmol/L (98-107); Estimated GFR 108.68 (mL/min/1.73m2); Glucose 105 mg/dL (74-106); Potassium 3.8 mmol/L (3.5-5.1); Sodium 139 mmol/L (136-145); Troponin I 9 ng/L (<or=76)
[2025-03-31 14:18] LABS: Troponin I 6 ng/L (<or=76)
--- NOTE | 2025-03-31 14:24 | DI.VRAD_ITS ---
PROCEDURE INFORMATION: Exam: XR Chest Exam date and time: 03/31/2025 1:09 PM Age: 45 years old Clinical indication: Other: Chest pain TECHNIQUE: Imaging protocol: Radiologic exam of the chest. Views: 2 views. COMPARISON: No relevant prior studies available. FINDINGS: Lungs: Unremarkable. No consolidation. Pleural spaces: Unremarkable. No pleural effusion. No pneumothorax. Heart/Mediastinum: Unremarkable. No cardiomegaly. Bones/joints: Unremarkable. IMPRESSION: No acute findings. Dictated and Authenticated by: Aisha Ellis MD. Orderin Michele Buenrostro MD
== END 2025-03-31 14:46 | disposition home or self-care (01) ==
PROVIDERS: Emergency Provider Emergency Medicine; PCP Family Medicine
DX: R20.2 Paresthesia of skin (principal); Z82.49 Family history of ischemic heart disease and other diseases of the circulatory system; Z87.891 Personal history of nicotine dependence
CPT/HCPCS: 36415; 80048; 93005; 99285; 71046; 84484; 85025; 93010; 99284

== ENCOUNTER 2025-04-14 14:39 | Emergency (ER) | payer MEDICAID, SELFPAY ==
[2025-04-14] VITALS (20 sets, daily range): BP systolic 132–160; BP diastolic 71–97; PULSE 53–91; RESP 14–22; TEMP 36.6; O2SAT 95–99
--- NOTE | 2025-04-14 14:30 | RT.EKG_ITS ---
APPROVED REPORT Exam: Resting ECG Reason for Exam: chest pain Patient Location: E HR:80 bpm ECG Measurements Heart Rate 80 AXIS AZ 158 P 47 QRSd 97 QRS 27 QT 370 T 21 QTc 427 Conclusion Sinus rhythm at a rate of 80 without acute ischemic change
--- NOTE | 2025-04-14 14:45 | DI.RAD_ITS ---
Exam(s) XR CHEST 2V PA LATERAL EXAM: XR CHEST 2V PA LATERAL CLINICAL HISTORY: chest pain TECHNIQUE: 2D digital imaging was performed. Two views. COMPARISON: CR,XR XR CHEST 2V PA LATERAL from 03/31/2025 FINDINGS: HEART: Normal size. Aorta: Not dilated. PULMONARY VASCULATURE: Normal. MEDIASTINUM: Unremarkable. LUNGS: Clear. PLEURAL SPACE: No pleural effusion or pneumothorax. BONE:Unremarkable for age. SOFT TISSUES: Unremarkable. IMPRESSION: No acute abnormality. The preliminary [facility] report was reviewed. DATA REPOSITORY: RADIATION DOSE DELIVERED:
--- NOTE | 2025-04-14 14:57 | ED.GENADUL_ITS ---
Discharge Plan Disposition Patient Disposition: Home Condition: Stable Discharge Details Clinical Impression: Chest pain Primary Care Provider: Moise Givens ED Provider: Xenia Gibson Home Meds and New Rx's Prescriptions: New hydroxyzine HCl 25 mg tablet 25 mg PO BID PRNQty: 10 0RF Discharge Instructions Instructions: Chest Pain, Adult ED Additional Instructions: As discussed, your work-up today was reassuring which includes EKG, chest x-ray, blood work in particular your heart protein (Troponin), which came back normal x2. Please follow-up with your primary care doctor regardless and in the meantime if you do develop any new or concerning symptoms please return to the emergency department for reevaluation. HPI General Date/Time Provider Initiated Documentation: 04/14/25 14:47 . HPI Narrative: The patient is a 45-year-old male without any prior diagnosis of past medical history currently not on any prescribed or regular medication that he takes who comes the emergency department for chest pain, dizziness. The patient reports that while he was just sitting around noon today he felt pain in the middle of his chest and felt like his heart has delayed beating and it felt like it was bubbling up. Reports immediately after this this was followed by sensation of lightheadedness mixed with room spinning sensation. Reports that he went in the shower and felt like he was going to pass out but he never did pass out. Admits to recent emergency department visit for sensation of numbness and tingling sensation with unremarkable finding. Reports that this did go away entirely from the prior ED visit and last night had some tingling station to his left arm but does not feel this way now. Denies any recent fevers or chills. He reports that he maybe felt a little short of breath earlier when he was having chest discomfort but not now. Denies abdominal pain, nausea or vomiting. Denies any recent travel or immobility. Patient reports that his brother around his age from myocardial infarction but does not know further details regarding this. Related Data Home Medications ?Medication ?Instructions ?Recorded ?Confirmed hydroxyzine HCl 25 mg tablet 25 mg PO BID PRN #10 tabs 04/14/25 Previous Rx's ?Medication ?Instructions ?Recorded hydroxyzine HCl 25 mg tablet 25 mg PO BID PRN #10 tabs 04/14/25 Allergies Allergy/AdvReac Type Severity Reaction Status Date / Time No Known Allergies Allergy Unverified 03/31/25 12:37 General Stated Complaint: Chest Pain YUVAL: 3 Review of Systems Narrative: Review of systems are negative except as mentioned. Exam Narrative Exam Narrative: General appearance: The patient is alert, has no immediate need for airway protection and no signs of toxicity. HEENT: Pupils are round, equal and reactive. No nystagmus is appreciated oral mucosal membranes are moist. Neck: Supple, non-tender. Respiratory: There are no retractions. Lungs are clear to auscultation. Cardiovascular: Regular in rate and rhythm. Radial pulses are intact and equal. Gastrointestinal: The abdomen is soft and nondistended with normal bowel sounds. Nontender to palpation throughout. Neurological: The patient is alert, awake and oriented x 3. Musculoskeletal strength is intact and equal to bilateral upper and lower extremities. Sensation is intact and equal to bilateral upper and lower extremities. Speech is clear. No facial asymmetry is appreciated. Cranial nerves II to XII motor function are intact and equal. No pronator drift noted. NIH stroke scale score is 0 at 1455. No truncal ataxia is noted. HINTS testing is within normal limits. Skin: Warm and dry. Back: No CVA tenderness is noted to palpation bilaterally. Extremities: No lower extremity edema or calf tenderness and no lower extremity asymmetry is noted. Course Vital Signs Vital signs: Vital Signs Temperature 36.6 C 04/14/25 14:41 Pulse 91 H 04/14/25 14:41 Respiratory Rate 18 04/14/25 14:41 Blood Pressure 132/78 04/14/25 14:41 Pulse Oximetry 97 04/14/25 14:41 Temperature 36.6 C 04/14/25 14:41 Pulse 91 H 04/14/25 14:41 Respiratory Rate 18 04/14/25 14:41 Blood Pressure 132/78 04/14/25 14:41 Pulse Oximetry 97 04/14/25 14:41 Oxygen Delivery Method Room Air 04/14/25 14:41 Oxygen Flow Rate 0 04/14/25 14:41 Pain Level 0 04/14/25 14:41 Medical Decision Making The patient has no focal deficit on exam which is reassuring. Patient reports component of room spinning and lightheadedness sensation but otherwise is not complaining of any more chest discomfort. EKG is done and it is nondiagnostic. I am doing a cardiac workup and ordered Antivert also. Patient agrees with this plan. The patient's chest x-ray is back and this is nondiagnostic. Chemistry and blood counts are unremarkable. Initial troponin is within normal limits. Second troponin is back and it continues to be unremarkable. The patient remains hemodynamically stable. I have updated the patient on workup result. I told him of plan for discharge. I encouraged him to follow-up with his primary care doctor regardless but urged him to return to the emergency department with any worsening symptoms or any other concerns. Prior to discharge the patient had some further concerns. He is wondering if he can get medication for this symptom. He was wondering about dizziness. Patient reports that when he stands up the dizziness goes away. Because of this I do not think it would be beneficial for the patient to continue meclizine. He is not having any orthostatic symptoms therefore it would not be beneficial to give him IV fluids also. Patient is concerned regarding his heart still. I told him again that he would need further workup on an outpatient basis. After long conversation ultimately the patient is interested in taking something for anxiety. I told him I typically do not start people on benzodiazepines but instead I will give him Vistaril which is in the antihistamine class which can make him sleepy and drowsy and help with anxiety also so he will get a dose to take home with him tonight and a prescription sent to his preferred pharmacy. I strongly encouraged again that he follow-up with his primary care provider in the meantime. The patient's heart score is 1 which puts him at a low risk for major adverse cardiac event. The patient is at low risk for pulmonary embolism based on both PERC rules and Wells' criteria. Imaging Data Radiologic Study: Imaging: X-Ray (Chest 2 view) Radiologist's impression: No evidence for acute abnormality in the chest. ECG Data Attestation: I personally reviewed and interpreted this ECG (s) as follows: (Sinus rhythm at a rate of 80 without acute ischemic change) PFSH All Active Problems (Updated 04/14/25 @ 17:29 by Xeina Gibson DO) Chest pain (Acute) Tingling of left upper extremity (Acute) Plantar fasciitis, bilateral (Acute) Family history of early CAD (Acute) Generalized anxiety disorder (Acute) Social History Smoking/Tobacco Use Status: Former Tobacco Use Quit Date: 11/17/22 Smoking risk assessment performed?: Yes Alcohol Intake: former Drug use: Never Substance use type: does not use Housing: apartment Do you feel safe at home: Yes Do you feel safe in your relationship?: Yes
[2025-04-14] MEDS: Meclizine 25 MG TAB PO (15:22)
[2025-04-14 15:28] LABS: Abs Immature Grans 0.01 10^3/uL (0.0-0.06); Absolute Basophil Count 0.04 10^3/uL (0.0-0.2); Absolute Eosinophil Count 0.04 10^3/uL (0.0-0.7); Absolute Lymphocyte Count 1.62 10^3/uL (1.2-3.4); Basophils % 0.6 %; Eosinophils % 0.6 %; HCT 47.2 % (40.0-50.0); HGB 15.6 g/dL (13.5-17.5); Immature Grans % 0.1 %; Lymphocytes % 22.8 %; MCH 28.5 pg (27.0-33.0); MCHC 33.1 % (32.0-36.0); MCV 86 fL (80-95); Neutrophils % 68.9 %; RBC 5.47 10^6/uL (4.36-5.78); RDW 13.2 % (11.8-14.1); RDW-SD 41.4 fL; WBC 7.11 10^3/uL (4.4-10.8)
--- NOTE | 2025-04-14 16:03 | DI.VRAD_ITS ---
PROCEDURE INFORMATION: Exam: XR Chest Exam date and time: 04/14/2025 3:28 PM Age: 45 years old Clinical indication: Other: Unspecified; Chest pain TECHNIQUE: Imaging protocol: Radiologic exam of the chest. Views: 2 views. COMPARISON: CR XR CHEST 2V PA LATERAL 03/31/2025 1:09 PM FINDINGS: Lungs: Unremarkable. No consolidation. Pleural spaces: Unremarkable. No pleural effusion. No pneumothorax. Heart/Mediastinum: Unremarkable. No cardiomegaly. Bones/joints: Unremarkable. IMPRESSION: No evidence for acute abnormality in the chest. Dictated and Authenticated by: Fadumo Ivory MD. Orderin Arthur Michaels MD
[2025-04-14 16:18] LABS: ALT 34 U/L (16-63); AST 20 U/L (15-37); Albumin 4.1 g/dL (3.4-5.0); Alkaline Phosphatase 60 U/L (46-116); Anion Gap 9.4 mmol/L (3-11); BUN 14 mg/dL (7-18); Bilirubin, Total 0.5 mg/dL (0.2-1.0); CO2 26.6 mmol/L (21.0-32.0); CREATININE 0.7 mg/dL (0.70-1.30); Calcium 8.9 mg/dL (8.5-10.1); Chloride 103 mmol/L (98-107); Estimated GFR 117.25 (mL/min/1.73m2); Glucose 91 mg/dL (74-106); Potassium 3.9 mmol/L (3.5-5.1); Sodium 139 mmol/L (136-145); Total Protein 7.8 g/dL (6.4-8.2); Troponin I 6 ng/L (<or=76)
[2025-04-14 17:22] LABS: Troponin I 7 ng/L (<or=76)
[2025-04-14] MEDS: hydrOXYzine HCL 25 MG TAB PO (18:04)
== END 2025-04-14 18:39 | disposition home or self-care (01) ==
PROVIDERS: Emergency Provider Emergency Medicine; PCP Family Medicine
DX: R07.9 Chest pain, unspecified (principal); R42 Dizziness and giddiness; Z82.49 Family history of ischemic heart disease and other diseases of the circulatory system; Z87.891 Personal history of nicotine dependence
CPT/HCPCS: 36415; 80053; 93005; 99285; 71046; 84484; 85025; 93010; 99284

== ENCOUNTER 2025-09-16 10:42 | Emergency (ER) | payer MEDICAID, SELFPAY ==
[2025-09-16] VITALS (35 sets, daily range): BP systolic 124–158; BP diastolic 68–106; PULSE 60–107; RESP 11–29; TEMP 36.6; O2SAT 95–100
--- NOTE | 2025-09-16 10:45 | RT.EKG_ITS ---
APPROVED REPORT Exam: Resting ECG Reason for Exam: Dizziness Patient Location: E HR:75 bpm ECG Measurements Heart Rate 75 AXIS NM 148 P 29 QRSd 101 QRS 1 QT 385 T -2 QTc 429 Conclusion Sinus rhythm...normal P axis, V-rate 60- 99 No Occlusion [place]
--- NOTE | 2025-09-16 11:00 | DI.RAD_ITS ---
Exam(s) XR CHEST 1V IN DI DEPT EXAM: XR CHEST 1V IN DI DEPT CLINICAL HISTORY: Weakness. TECHNIQUE: 2D digital imaging was performed. COMPARISON: CR,XR XR CHEST 2V PA LATERAL from 04/14/2025 FINDINGS: Single AP portable view. Heart size is upper normal. The mediastinum is not widened. Lungs are clear. No infiltrates nor obvious pleural effusions. IMPRESSION: No acute pulmonary findings on this single AP portable view of the chest. DATA REPOSITORY: RADIATION DOSE DELIVERED:
--- NOTE | 2025-09-16 11:00 | DI.CT_ITS ---
Exam(s) CT HEAD WO EXAM: CT HEAD WO CLINICAL HISTORY: Weakness. TECHNIQUE: Imaging Protocol: Axial computed tomography images with coronal and sagittal reformatted images were created and reviewed COMPARISON: No exams were available for comparison FINDINGS: There are no skull fractures. There is no fluid in the visualized paranasal sinuses. There is no evidence of intracranial hemorrhage, mass effect, or shift of midline structures. There are no extra-axial fluid collections. The ventricles are not enlarged or shifted and there is no blood within the ventricular system nor within the basal cisterns. IMPRESSION: No acute intracranial findings on this noninfused CT scan of the brain. Report called by myself to ER physician 09/16/2025 at 1:22 p.m. RADIATION DOSE DELIVERED: 984.51mGy.cm Total DLP DATA REPOSITORY: All CT scans at this facility are submitted to the National Radiology Data Registry (NRDR) Dose Index Registry (DIR) with the [employer] ([employer]). RADIATION OPTIMIZATION: All CT scans at this facility use at least one of these dose optimization techniques: automated exposure control; mA and/or kV adjustment per patient size (includes targeted exams where dose is matched to clinical indication); or iterative reconstruction.
--- NOTE | 2025-09-16 11:02 | ED.GENADUL_ITS ---
Discharge Plan Disposition Patient Disposition: Home Condition: Stable Discharge Details Clinical Impression: Weakness, Anxiety Primary Care Provider: Moise Givens ED Provider: Smita Reynolds Home Meds and New Rx's Prescriptions: New hydroxyzine HCl 25 mg tablet 25 mg PO BID PRN (Reason: anxiety) Qty: 10 0RF Rx Instructions: Please take 1 tablet twice daily as needed for anxiety Discharge Instructions Instructions: Cognitive-Behavioral Therapy, Generalized Weakness (DC), Anxiety, Adult ED Additional Instructions: At this time no evidence of CVA or stroke on CT, No pneumonia, no evidence of pneumonia, or electrolyte abnormality on your lab work. No evidence of heart attack on your EKG. Or your lab work. Your glucose was slightly elevated at 124. A Hgb A1C was added onto your labs which shows your glucose over a period of time. The hemoglobin A1c is 5.6 the normal cutoff is 5.7 or less this is right on the border you may want to discuss this with primary care provider after being established. May also want to change your diet and decrease sugary intake. You are placed on a care management list to assist you in getting established with a primary care provider. Follow up with primary care provider in 3-5 days. Return to ED sooner if any worsening or concerns. Increase oral fluids. You may also call [facility] and they will set you up with a counselor and some resources for your anxiety Stand Alone Forms: Portal Information Referrals: [facility] [Outside] - 5 days Referral Note: Call for counseling and assistance with your anxiety Moise Givens DO [Primary Care Provider, Medicine] - 5 days Referral Note: Call for an appointment Clinical Impression: Anxiety; Weakness HPI General Mode of arrival: ambulatory . Date/Time Provider Initiated Documentation: 09/16/25 10:47 . Limitations to Documentation: no limitations . Information obtained by: patient, RN notes reviewed and old records reviewed . HPI Narrative: Approximately 30 minutes prior to arrival patient began feeling funny reports some weakness in that his left arm and left leg, reports that he feels foggy and like he is unable to control his body. Denies any pain no recent injuries denies any drugs or alcohol. He does appear moderately anxious upon arrival. No focal gross motor neurodeficits noted on exam. Lungs are clear to auscultation bilaterally. He is hypertensive on arrival. Related Data Home Medications ?Medication ?Instructions ?Recorded ?Confirmed hydroxyzine HCl 25 mg tablet 25 mg PO BID PRN anxiety #10 tabs 09/16/25 Previous Rx's ?Medication ?Instructions ?Recorded hydroxyzine HCl 25 mg tablet 25 mg PO BID PRN anxiety #10 tabs 09/16/25 Allergies Allergy/AdvReac Type Severity Reaction Status Date / Time No Known Allergies Allergy Unverified 09/16/25 10:47 General Stated Complaint: AMS/LOC YUVAL: 3 Review of Systems All systems reviewed & are unremarkable except as noted in HPI and below Constitutional Constitutional: Reports as per HPI and Reports weakness Neurologic Neurologic: Reports as per HPI, Reports restless legs and Reports weakness Psychiatric Psychiatric: Reports anxiety Exam Narrative Exam Narrative: Constitutional: Alert and oriented x3. Appears stated age. Obese body habitus. Appears mildly anxious. Head: Normocephalic, no trauma. Eyes: Pupils PERRL, Red reflex noted, EOM's intact. Eyelids symmetrical without lesions, discharge, or swelling. ENT: Bilateral TM's WNL, External ear normal to inspection, no mastoid TTP, swelling, or erythema, Nasal turbinates WNL, no nasal discharge. Normal dentition, Posterior pharynx WNL, no exudate. Chest: RRR, Normal S1, S2, distal pulses intact. Resp: Lungs clear to auscultation bilaterally, no wheezes, rales, or rhonchi. Abdomen: Soft, non-distended, Normoactive bowel sounds all 4 quads. Musculoskeletal: Normal gait, Moves all 4 extremities without difficulty. Skin: No suspicious rashes or lesions. Capillary refill less than 2 sec. Neurologic: Cranial nerves II-XII intact. Alert and oriented x 3. Motor: No deficits noted. Sensory: Intact bilaterally all 4 extremities. Hematologic/Lymphatic: No ecchymosis, no lymphadenopathy. Course Vital Signs Vital signs: Vital Signs Temperature 36.6 C 09/16/25 10:44 Pulse 88 09/16/25 10:44 Respiratory Rate 18 09/16/25 10:44 Blood Pressure 156/106 H 09/16/25 10:44 Pulse Oximetry 99 09/16/25 10:44 Temperature 36.6 C 09/16/25 10:44 Pulse 88 09/16/25 10:44 Respiratory Rate 18 09/16/25 10:44 Blood Pressure 156/106 H 09/16/25 10:44 Pulse Oximetry 99 09/16/25 10:44 Pain Level 0 09/16/25 10:44 Medical Decision Making Cardiac reported troponin, CBC CMP serial troponins, UDS, UA, head CT chest x- ray and 0.5 mg Lorazepam. Spoke with radiologist CT and chest x-ray within normal limits. CBC shows no leukocytosis, CMP within normal limits glucose is 124, urinalysis is pending at this time UDS is pending. Patient reevaluation he reports that the anxiety is a little bit better medication however he still has his initial symptoms present. Vital signs are improved. Blood pressures 138/79, I did discuss his workup which is relatively unremarkable thus far. His questions were answered to the best my ability. He does not currently warrant primary care provider we did place him on a care management list to help him get established. Hemoglobin A1c is 5.6 patient regarding diet and he verbalized understanding. He is requesting to sign as needed. I did prescribe him hydroxyzine. Also gave him a referral for counseling services and PCP. Oh yes oh Patient remained medically stable throughout the remainder of his stay. This text was generated using [employer] system, please disregard any oddities of phrase or misspellings. Medical Records Medical records reviewed: Yes I reviewed the patient's medical records. Lab Data Lab results reviewed: Yes I reviewed the patient's lab results. Labs: Laboratory Tests Range/Units 09/16/25 09/16/25 09/16/25 11:10 12:10 14:00 WBC (4.4-10.8) 10^3/uL 6.66 RBC (4.36-5.78) 10^6/uL 5.29 Hgb (13.5-17.5) g/dL 15.0 Hct (40.0-50.0) % 45.9 MCV (80-95) fL 87 MCH (27.0-33.0) pg 28.4 MCHC (32.0-36.0) % 32.7 RDW (11.8-14.1) % 13.4 Plt Count (130-400) 10^3/uL 196 MPV (8.0-11.0) fL 10.9 Immature Gran % % 0.2 Neutrophils % % 62.6 Lymphocytes % % 27.6 Monocytes % % 8.1 Eosinophils % % 0.9 Basophils % % 0.6 Nucleated RBC % (0.0-0.3) % 0.0 Absolute Neutrophils (1.2-6.7) 10^3/uL 4.17 Absolute Lymphocytes (1.2-3.4) 10^3/uL 1.84 Absolute Monocytes (0.1-0.8) 10^3/uL 0.54 Absolute Eosinophils (0.0-0.7) 10^3/uL 0.06 Absolute Basophils (0.0-0.2) 10^3/uL 0.04 Sodium (136-145) mmol/L 140 Potassium (3.5-5.1) mmol/L 3.6 Chloride (98-107) mmol/L 104 Carbon Dioxide (20.0-31.0) mmol/L 27.3 Anion Gap (3-11) mmol/L 8.7 BUN (9-23) mg/dL 12 Creatinine (0.73-1.18) mg/dL 0.85 Est GFR (CKD-EPI 2020) (mL/min/1.73m2) 98.15 Glucose (74-106) mg/dL 124 H Calcium (8.3-10.6) mg/dL 9.1 Magnesium (1.6-2.6) mg/dL 2.1 Total Bilirubin (0.2-1.2) mg/dL 0.50 AST (<34) U/L 25 ALT (10-49) U/L 23 Alkaline Phosphatase (46-116) U/L 58 Troponin I (<54) ng/L 5 4 Cancelled Total Protein (5.7-8.2) g/dL 7.7 Albumin (3.2-5.0) g/dL 4.6 TSH (0.55-4.78) uIU/mL 2.64 PFSH All Active Problems (Updated 09/16/25 @ 13:48 by Smita Reynolds NP) Anxiety (Chronic) Weakness (Acute) Plantar fasciitis, bilateral (Acute) Family history of early CAD (Acute) Generalized anxiety disorder (Acute) Social History Smoking/Tobacco Use Status: Former Tobacco Use Quit Date: 11/17/22 Smoking risk assessment performed?: Yes Alcohol Intake: former Drug use: Never Substance use type: does not use Housing: apartment Do you feel safe at home: Yes Do you feel safe in your relationship?: Yes
[2025-09-16] MEDS: LORazepam 2 MG/ML VIAL 0.5 MG IVP (11:17)
[2025-09-16 11:22] LABS: Abs Immature Grans 0.01 10^3/uL (0.0-0.06); HCT 45.9 % (40.0-50.0); HGB 15.0 g/dL (13.5-17.5); Immature Grans % 0.2 %; MCH 28.4 pg (27.0-33.0); MCHC 32.7 % (32.0-36.0); MCV 87 fL (80-95); MPV 10.9 fL (8.0-11.0); Platelet Count 196 10^3/uL (130-400); RBC 5.29 10^6/uL (4.36-5.78); RDW 13.4 % (11.8-14.1); RDW-SD 42.5 fL; WBC 6.66 10^3/uL (4.4-10.8)
[2025-09-16 12:02] LABS: Magnesium 2.1 mg/dL (1.6-2.6)
[2025-09-16 12:04] LABS: ALT 23 U/L (10-49); AST 25 U/L (<34); Albumin 4.6 g/dL (3.2-5.0); Alkaline Phosphatase 58 U/L (46-116); Anion Gap 8.7 mmol/L (3-11); BUN 12 mg/dL (9-23); Bilirubin, Total 0.50 mg/dL (0.2-1.2); CO2 27.3 mmol/L (20.0-31.0); Calcium 9.1 mg/dL (8.3-10.6); Chloride 104 mmol/L (98-107); Glucose 124 mg/dL (74-106); Potassium 3.6 mmol/L (3.5-5.1); Sodium 140 mmol/L (136-145); Total Protein 7.7 g/dL (5.7-8.2); Troponin I 5 ng/L (<54)
[2025-09-16 12:07] LABS: TSH (W/Ref FT4) 2.64 uIU/mL (0.55-4.78)
[2025-09-16 12:32] LABS: Troponin I 4 ng/L (<54)
[2025-09-16 13:49] LABS: Lab Add On Test DONE
[2025-09-16 14:07] LABS: Hemoglobin A1C 5.6 % (<5.7)
[2025-09-16 15:08] LABS: Glucose Negative (Negative)
[2025-09-19 16:52] LABS: Cannabinoids THC Positive (Negative)
== END 2025-09-16 15:05 | disposition home or self-care (01) ==
PROVIDERS: Emergency Provider Registered Nurse Emergency
DX: R53.1 Weakness (principal); F41.9 Anxiety disorder, unspecified; Z87.891 Personal history of nicotine dependence
CPT/HCPCS: 36415; 80053; 80307; 93005; 96374; 99284; 70450; 71045; 81003; 83036; 83735; 84443; 84484; 85025; 93010; J2060